=== PATIENT | female | born 2000 | race Caucasian/White ===

== ENCOUNTER 2022-08-25 21:26 | Emergency (ER) | payer OTHER, SELFPAY ==
[2022-08-25 21:45] VITALS: BP 117/62; PULSE 88; RESP 16; TEMP 37.1; O2SAT 98; BMI 25.0
--- NOTE | 2022-08-25 22:46 | ED.NURSE ---
belongings inventoried by Security, locked up in med room.
--- NOTE | 2022-08-25 22:49 | ED.PSYCH ---
HPI - Psych General Date Seen: 08/25/22 Chief Complaint: Psychiatric Problem/Disorder Stated Complaint: SUICIDAL IDEATION Time Seen by Provider: 08/25/22 21:49 Source: patient Mode of arrival: ambulatory Limitations: no limitations History of Present Illness HPI Narrative: Patient is a 22-year-old female [employer] student who presents here with overwhelming urge to kill herself. She tells me she has the plan of either jumping out of higher eyes, or overdosing with pills. Has been building for approximately 2 weeks, she was talking to friends today, and came in for assessment. She denies taking alcohol, drugs, or overdose of her current medication, she denies voices, telling her or command hallucinations, previous history of suicidal gesture, with suicidal assessment. I am not sure if she was hospitalized before today's episode was brought to appendical as she did not get a choir appointment. I had the mental health clinical faculty see her, she feels that she is holdable, and also needs hospitalization given the above. MD complaint: suicidal ideation and feels depressed Onset (ago): week(s) Duration: constant and getting worse History of same: Yes Relieving factors: none Exacerbating factors: none Associated psychiatric symptoms: suicidal ideation Associated symptoms: denies other symptoms If self harm: admits thoughts of self harm and has plan Related Data Home Medications Medication Instructions Recorded Confirmed aripiprazole 2 mg tablet mg 08/25/22 fluoxetine 20 mg capsule mg 08/25/22 propranolol 20 mg tablet mg 08/25/22 Allergies Allergy/AdvReac Type Severity Reaction Status Date / Time Penicillins AdvReac Verified 08/25/22 21:49 Review of Systems Status of ROS: Reports: 10 or more systems reviewed and unremarkable except as noted in History and below [facility] Medical History Anxiety Depression Surgical History History of appendectomy Social History Smoking Status: Never smoker Do you use any of these nicotine containing products: None How often do you have a drink containing alcohol: never AUDIT-C Alcohol total score: 0 Non-prescribed substance use: denies use Exam Narrative: Exam Narrative: Patient is seen in room 3 with look nurse Anayeli present, she is alert oriented nontoxic, answering my questions normally, she is in paper scrubs. Pupils are equal round reactive to light, there is no scleral icterus redness, TMs are normal, oropharynx is normal, there is no adenopathy anterior posterior chains, her neck is supple, thyroid is normal midline palpable not enlarged, chest is clear entry bilaterally with no wheezing crackles noted easy respirations are noted. Heart sounds no clicks murmurs or gallops are S1-S2 are normal, her abdomen is soft and slightly obese there is no guarding no hepatosplenomegaly no gravid uterus, no masses noted. Neurologically intact moving her upper lower extremities normally, strength is symmetrical and follows commands normally, and cooperative. Const: Vital Signs, click to edit/add: Vital Signs - 24 hr 08/25/22 21:45 08/26/22 00:49 Temperature 98.7 F Pulse Rate [Left P ulse Oximeter] 88 75 Respiratory Rate 16 16 Blood Pressure [Le ft Upper Arm] 117/62 122/68 Pulse Oximetry 98 99 Oxygen Delivery Me thod Room Air Room Air Documenting provider has reviewed patient's vital signs: yes Common normals: no apparent distress Course Course Hospital Course: 12:23 a.m. Discussion with the mental health professional she is hospitalized herbal at the present time and voluntary, although she questions whether she will agree to go. For this reason she would be holdable a 72 hour hold if she decides to leave. I filled out the necessary paperwork. she is cooperative at the present time. She is medically cleared at this time for psychiatric hospitalization. Vital Signs Vital signs: Initial Vital Signs Temperature 98.7 F 08/25/22 21:45 Temperature Source Temporal Artery Scan 08/25/22 21:45 Pulse Rate 88 08/25/22 21:45 Respiratory Rate 16 08/25/22 21:45 Blood Pressure 117/62 08/25/22 21:45 Blood Pressure Mean 80 08/25/22 21:45 Blood Pressure Position Sitting 08/25/22 21:45 Pulse Oximetry 98 08/25/22 21:45 Oxygen Delivery Method 08/25/22 21:45 Vital Signs Temperature 98.7 F 08/25/22 21:45 Pulse Rate 88 08/25/22 21:45 Respiratory Rate 16 08/25/22 21:45 Blood Pressure 117/62 08/25/22 21:45 Pulse Oximetry 98 08/25/22 21:45 Oxygen Delivery Method 08/25/22 21:45 Temperature 98.7 F 08/25/22 21:45 Pulse Rate 75 08/26/22 00:49 Respiratory Rate 16 08/26/22 00:49 Blood Pressure 122/68 08/26/22 00:49 Pulse Oximetry 99 08/26/22 00:49 Oxygen Delivery Method 08/26/22 00:49 MDM - Psych MDM Narrative Medical decision making narrative: Differential diagnosis includes but is not limited life-threatening diagnosis is of severe depression with suicidal plan, chemical intoxication with suicidal ideation and risk of self-harm, schizoaffective disorder with risk of self-harm, bipolar disorder with severe depressive phase and risk of self-harm, personality disorder with risk of self-harm, depression due to hyperthyroidism, metabolic derangement, or [employer] abnormality Medical Records Attestation: I reviewed the patient's medical records. Lab Data Attestation: I reviewed the patient's lab results. Labs: Lab Results 08/25/22 08/25/22 08/25/22 Range/Units 22:45 22:45 22:45 WBC 9.50 (4.50-11.00) K/uL RBC 4.06 (4.00-5.20) m/uL Hgb 11.6 L (12.0-16.0) gm/dL Hct 36.3 (33.0-51.0) % MCV 89 (80-100) fL MCH 29 (26-34) pg MCHC 32 (32-36) gm/dL RDW Coeff of Efra 12.3 (11.5-15.5) % Plt Count 356 (140-440) K/uL Neut % (Auto) 65.7 (42.0-72.0) % Lymph % (Auto) 25.2 (20-44) % [place] % (Auto) 7.1 (0.0-11.0) % Eos % (Auto) 1.6 (0.0-7.0) % Baso % (Auto) 0.3 (0.0-3.0) % Neut # (Auto) 6.25 (1.7-7.0) K/uL Lymph # (Auto) 2.39 (0.90-2.90) K/uL Cameron # (Auto) 0.70 (0.00-0.90) K/UL Eos # (Auto) 0.15 (0.00-0.50) K/uL Baso # (Auto) 0.03 (0.00-0.30) K/uL Abs Immat Gran (auto) 0.01 (0.00-0.30) K/uL Sodium 137 (135-149) mmol/L Potassium 3.9 (3.6-5.1) mmol/L Chloride 102 (96-114) mmol/L Carbon Dioxide 28 (20-32) mmol/L BUN 14 (5-24) mg/dL Creatinine 0.5 (0.5-1.5) mg/dL Estimated Creat Clear 160.15 Estimated GFR 137 ml/min Glucose 115 (60-115) mg/dL Calcium 9.6 (8.4-10.6) mg/dL Total Bilirubin (0.1-1.5) mg/dL Direct Bilirubin (0.0-0.5) mg/dL AST (12-35) U/L ALT (4-35) U/L Alkaline Phosphatase (40-150) U/L Total Protein (6.0-8.3) g/dL Albumin (3.3-5.0) g/dL TSH 1.080 (0.270-4.20) uIU/mL HCG, Qual (Negative) Urine Color (Yellow) Urine Appearance (Clear) Urine pH (5.0-8.5) Ur Specific [place] (1.000-1.030) Urine Protein (Negative) Urine Glucose (UA) (Negative) Urine Ketones (Negative) Urine Blood (Negative) Urine Nitrite (Negative) Urine Bilirubin (Negative) Urine Urobilinogen (0.2-1.0) Ur Leukocyte Esterase (Negative) Urine RBC (0-2) Urine WBC (0-5) Ur Squamous Epith Cells (None-Few) Urine Bacteria (None) Salicylates (1.0-10) mg/dL Urine Opiates Screen (Negative) Ur Oxycodone Screen (Negative) Urine Methadone Screen (Negative) Ur Propoxyphene Screen (Negative) Acetaminophen < 10.0 L (10.0-30.0) ug/mL Ur Barbiturates Screen (Negative) U Tricyclic Antidepress (Negative) Ur Phencyclidine Scrn (Negative) Ur Amphetamines Screen (Negative) U Methamphetamines Scrn (Negative) U Benzodiazepines Scrn (Negative) Urine Cocaine Screen (Negative) U Marijuana (THC) Screen (Negative) Ur Drug Screen Comment Ethyl Alcohol (0.01-0.03) % SARS-CoV-2 (PCR) (Negative) Influenza Type A (PCR) (Negative) Influenza Type B (PCR) (Negative) RSV (PCR) (Negative) 08/25/22 08/25/22 08/25/22 Range/Units 22:45 23:58 23:58 WBC (4.50-11.00) K/uL RBC (4.00-5.20) m/uL Hgb (12.0-16.0) gm/dL Hct (33.0-51.0) % MCV (80-100) fL MCH (26-34) pg MCHC (32-36) gm/dL RDW Coeff of Efra (11.5-15.5) % Plt Count (140-440) K/uL Neut % (Auto) (42.0-72.0) % Lymph % (Auto) (20-44) % Cameron % (Auto) (0.0-11.0) % Eos % (Auto) (0.0-7.0) % Baso % (Auto) (0.0-3.0) % Neut # (Auto) (1.7-7.0) K/uL Lymph # (Auto) (0.90-2.90) K/uL [place] # (Auto) (0.00-0.90) K/UL Eos # (Auto) (0.00-0.50) K/uL Baso # (Auto) (0.00-0.30) K/uL Abs Immat Gran (auto) (0.00-0.30) K/uL Sodium (135-149) mmol/L Potassium (3.6-5.1) mmol/L Chloride (96-114) mmol/L Carbon Dioxide (20-32) mmol/L BUN (5-24) mg/dL Creatinine (0.5-1.5) mg/dL Estimated Creat Clear Estimated GFR ml/min Glucose (60-115) mg/dL Calcium (8.4-10.6) mg/dL Total Bilirubin 0.2 (0.1-1.5) mg/dL Direct Bilirubin 0.1 (0.0-0.5) mg/dL AST 20 (12-35) U/L ALT 15 (4-35) U/L Alkaline Phosphatase 57 (40-150) U/L Total Protein 7.1 (6.0-8.3) g/dL Albumin 4.6 (3.3-5.0) g/dL TSH (0.270-4.20) uIU/mL HCG, Qual (Negative) Urine Color (Yellow) Urine Appearance (Clear) Urine pH (5.0-8.5) Ur Specific [place] (1.000-1.030) Urine Protein (Negative) Urine Glucose (UA) (Negative) Urine Ketones (Negative) Urine Blood (Negative) Urine Nitrite (Negative) Urine Bilirubin (Negative) Urine Urobilinogen (0.2-1.0) Ur Leukocyte Esterase (Negative) Urine RBC (0-2) Urine WBC (0-5) Ur Squamous Epith Cells (None-Few) Urine Bacteria (None) Salicylates < 1.0 L (1.0-10) mg/dL Urine Opiates Screen Negative (Negative) Ur Oxycodone Screen Negative (Negative) Urine Methadone Screen Negative (Negative) Ur Propoxyphene Screen Negative (Negative) Acetaminophen (10.0-30.0) ug/mL Ur Barbiturates Screen Negative (Negative) U Tricyclic Antidepress Negative (Negative) Ur Phencyclidine Scrn Negative (Negative) Ur Amphetamines Screen Negative (Negative) U Methamphetamines Scrn Negative (Negative) U Benzodiazepines Scrn Negative (Negative) Urine Cocaine Screen Negative (Negative) U Marijuana (THC) Screen Negative (Negative) Ur Drug Screen Comment See Note Ethyl Alcohol < 0.01 L (0.01-0.03) % SARS-CoV-2 (PCR) Negative SARS-CoV-2 (Negative) Influenza Type A (PCR) Negative PCR FLU A (Negative) Influenza Type B (PCR) Negative PCR FLU B (Negative) RSV (PCR) Negative PCR RSV (Negative) 08/25/22 08/26/22 Range/Units 23:58 00:40 WBC (4.50-11.00) K/uL RBC (4.00-5.20) m/uL Hgb (12.0-16.0) gm/dL Hct (33.0-51.0) % MCV (80-100) fL MCH (26-34) pg MCHC (32-36) gm/dL RDW Coeff of Efra (11.5-15.5) % Plt Count (140-440) K/uL Neut % (Auto) (42.0-72.0) % Lymph % (Auto) (20-44) % [place] % (Auto) (0.0-11.0) % Eos % (Auto) (0.0-7.0) % Baso % (Auto) (0.0-3.0) % Neut # (Auto) (1.7-7.0) K/uL Lymph # (Auto) (0.90-2.90) K/uL [place] # (Auto) (0.00-0.90) K/UL Eos # (Auto) (0.00-0.50) K/uL Baso # (Auto) (0.00-0.30) K/uL Abs Immat Gran (auto) (0.00-0.30) K/uL Sodium (135-149) mmol/L Potassium (3.6-5.1) mmol/L Chloride (96-114) mmol/L Carbon Dioxide (20-32) mmol/L BUN (5-24) mg/dL Creatinine (0.5-1.5) mg/dL Estimated Creat Clear Estimated GFR ml/min Glucose (60-115) mg/dL Calcium (8.4-10.6) mg/dL Total Bilirubin (0.1-1.5) mg/dL Direct Bilirubin (0.0-0.5) mg/dL AST (12-35) U/L ALT (4-35) U/L Alkaline Phosphatase (40-150) U/L Total Protein (6.0-8.3) g/dL Albumin (3.3-5.0) g/dL TSH (0.270-4.20) uIU/mL HCG, Qual Negative (Negative) Urine Color Yellow (Yellow) Urine Appearance Clear (Clear) Urine pH 7.5 (5.0-8.5) Ur Specific [place] 1.015 (1.000-1.030) Urine Protein Negative (Negative) Urine Glucose (UA) Negative (Negative) Urine Ketones Negative (Negative) Urine Blood Negative (Negative) Urine Nitrite Negative (Negative) Urine Bilirubin Negative (Negative) Urine Urobilinogen 0.2 (0.2-1.0) Ur Leukocyte Esterase Negative (Negative) Urine RBC 0-2 (0-2) Urine WBC 0-2 (0-5) Ur Squamous Epith Cells Few (None-Few) Urine Bacteria None (None) Salicylates (1.0-10) mg/dL Urine Opiates Screen (Negative) Ur Oxycodone Screen (Negative) Urine Methadone Screen (Negative) Ur Propoxyphene Screen (Negative) Acetaminophen (10.0-30.0) ug/mL Ur Barbiturates Screen (Negative) U Tricyclic Antidepress (Negative) Ur Phencyclidine Scrn (Negative) Ur Amphetamines Screen (Negative) U Methamphetamines Scrn (Negative) U Benzodiazepines Scrn (Negative) Urine Cocaine Screen (Negative) U Marijuana (THC) Screen (Negative) Ur Drug Screen Comment Ethyl Alcohol (0.01-0.03) % SARS-CoV-2 (PCR) (Negative) Influenza Type A (PCR) (Negative) Influenza Type B (PCR) (Negative) RSV (PCR) (Negative) Discharge Plan Discharge Clinical Impression: Suicidal ideation, Depression Condition: Stable Additional Instructions: Discharge to psych facility, patient medically cleared Prescriptions: No Action propranolol 20 mg tablet Label Comments: TAKE 1-2 TABLETS BY MOUTH TWICE A DAY NEEDED FOR ANXIETY. fluoxetine 20 mg capsule Label Comments: TAKE 3 CAPSULES BY MOUTH EVERY MORNING. aripiprazole 2 mg tablet Label Comments: TAKE 1 TABLET BY MOUTH EVERY NIGHT AT BEDTIME Follow Up/Referrals: Provider,Not a Local [Primary Care Provider] -
--- NOTE | 2022-08-25 22:55 | ED.NURSE ---
DEC assessment started
[2022-08-25 23:12] LABS: Chloride* 102 mmol/L (96-114); Potassium* 3.9 mmol/L (3.6-5.1); Sodium* 137 mmol/L (135-149)
[2022-08-25 23:13] LABS: Albumin* 4.6 g/dL (3.3-5.0)
[2022-08-25 23:14] LABS: Creatinine* 0.5 mg/dL (0.5-1.5); Est. Creatinine Clearance* 160.15; Estimated Glomerular Filt Rate 137 ml/min
[2022-08-25 23:15] LABS: Blood Urea Nitrogen* 14 mg/dL (5-24); Calcium* 9.6 mg/dL (8.4-10.6); Carbon Dioxide* 28 mmol/L (20-32); Glucose* 115 mg/dL (60-115)
[2022-08-25 23:16] LABS: Alanine Aminotransferase* 15 U/L (4-35); Alkaline Phosphatase* 57 U/L (40-150); Aspartate Amino Transferase* 20 U/L (12-35); Bilirubin Direct* 0.1 mg/dL (0.0-0.5); Bilirubin Total* 0.2 mg/dL (0.1-1.5); Total Protein* 7.1 g/dL (6.0-8.3)
[2022-08-25] MEDS: FLUOXETINE HCL 10 MG CAPSULE 60 MG PO (23:17)
[2022-08-25] MEDS: PROPRANOLOL 20 MG TABLET PO (23:17)
[2022-08-25 23:18] LABS: Acetaminophen* < 10.0 ug/mL (10.0-30.0); Ethanol* < 0.01 % (0.01-0.03); Salicylate* < 1.0 mg/dL (1.0-10)
[2022-08-26 00:11] LABS: HCG Qualitative* Negative (Negative)
[2022-08-26 00:20] LABS: Amphetamine Screen Urine Negative (Negative); Barbiturate Screen Urine Negative (Negative); Cannabinoid Screen Urine Negative (Negative); Cocaine Screen Urine Negative (Negative); Methadone Screen Urine Negative (Negative); Methamphetamines Screen Urine Negative (Negative); Opiate Screen Urine Negative (Negative); Oxycodone Screen Urine Negative (Negative); Phencyclidine Screen Urine Negative (Negative); Tricyclic Antidepressant Urine Negative (Negative)
[2022-08-26 00:29] LABS: Basophils Absolute Auto 0.03 K/uL (0.00-0.30); Basophils Percent Auto 0.3 % (0.0-3.0); Eosinophils Absolute Auto 0.15 K/uL (0.00-0.50); Eosinophils Percent Auto 1.6 % (0.0-7.0); Hematocrit 36.3 % (33.0-51.0); Hemoglobin* 11.6 gm/dL (12.0-16.0); Immature Granulocytes Abs Auto 0.01 K/uL (0.00-0.30); Lymphocytes Absolute Auto 2.39 K/uL (0.90-2.90); Lymphocytes Percent Auto 25.2 % (20-44); Mean Corpuscular HGB Conc 32 gm/dL (32-36); Mean Corpuscular Hemoglobin 29 pg (26-34); Mean Corpuscular Volume 89 fL (80-100); Monocytes Percent Auto 7.1 % (0.0-11.0); Neutrophils Absolute Auto 6.25 K/uL (1.7-7.0); Neutrophils Percent Auto 65.7 % (42.0-72.0); Platelet Count* 356 K/uL (140-440); RDW Coefficient of Variation % 12.3 % (11.5-15.5); Red Blood Count 4.06 m/uL (4.00-5.20)
[2022-08-26 00:30] LABS: Slide Review Reflex No
--- NOTE | 2022-08-26 00:30 | ED.NURSE ---
patient pleasant and cooperative, in bed resting. requested water, water given.
[2022-08-26 00:44] LABS: PCR FLU A Negative PCR FLU A (Negative); PCR FLU B Negative PCR FLU B (Negative); PCR RSV Negative PCR RSV (Negative)
[2022-08-26 00:49] VITALS: BP 122/68; PULSE 75; RESP 16; O2SAT 99
[2022-08-26 00:50] LABS: SARS PCR* Negative SARS-CoV-2 (Negative)
[2022-08-26 00:53] LABS: Appearance Urine Clear (Clear); Bilirubin Urine Negative (Negative); Blood Urine Negative (Negative); Color Urine Yellow (Yellow); Glucose Urine Negative (Negative); Ketones Urine Negative (Negative); Leukocyte Esterase Urine Negative (Negative); Nitrite Urine Negative (Negative); Protein Urine Negative (Negative); Specific Gravity Urine 1.015 (1.000-1.030); Urobilinogen Urine 0.2 (0.2-1.0); pH Urine 7.5 (5.0-8.5)
[2022-08-26 00:57] LABS: Benzodiazepines Screen Urine Negative (Negative)
[2022-08-26 01:00] LABS: RBC Urine 0-2 (0-2); Squamous Epithelial Cell Urine Few (None-Few); WBC Urine 0-2 (0-5)
--- NOTE | 2022-08-26 01:56 | ED.NURSE ---
faxed [facility] patient info for assessment, verified they received.
--- NOTE | 2022-08-26 03:59 | ED.NURSE ---
[facility]
--- NOTE | 2022-08-26 04:25 | ED.NURSE ---
n2n report to [facility] accepting nurse. all additional questions answered, if pt does not leave facility at dispatches ETA of [phone] to call and update them at [phone].
--- NOTE | 2022-08-26 04:41 | ED.NURSE ---
pt woke up, updated on plan to transport to [facility] at around 0620, pt agreeable and requests to continue sleeping until then.
[2022-08-26 06:00] VITALS: BP 108/68; PULSE 74; RESP 16; TEMP 37.1; O2SAT 99
--- NOTE | 2022-08-26 06:40 | ED.NURSE ---
report to [facility] ems, pt transfered via cot, pt agreeable, snacks sent with, belongings given to EMS.
== END 2022-08-26 06:43 | disposition home or self-care (01) ==
PROVIDERS: Emergency Provider Family Medicine
DX: R45.851 Suicidal ideations (principal); F32.A Depression, unspecified
CPT/HCPCS: 36415; 80048; 80076; 80143; 80179; 80306; 81001; 82077; 84443; 84703; 85025; 87502; 87634; 87635; 99284; A9270

== ENCOUNTER 2022-08-26 06:34 | Outpatient (CLI) | payer OTHER, SELFPAY | END 2022-08-26 06:35 | disposition home or self-care (01) | PROVIDERS: Visit Provider Family Medicine | DX: R45.851 Suicidal ideations (principal) | CPT/HCPCS: A0425; A0428 ==

== ENCOUNTER 2024-02-12 01:18 | Outpatient (CLI) | payer OTHER, SELFPAY | END 2024-02-12 01:19 | disposition home or self-care (01) | LOC: AMB 02-16 07:29 | PROVIDERS: Visit Provider Emergency Medicine | DX: R45.851 Suicidal ideations (principal) | CPT/HCPCS: A0998 ==